=== PATIENT | female | born 1965 | race Caucasian/White ===

== ENCOUNTER → 2016-07-10 | Outpatient (CLI) | payer BC ==
[~2016-07-10] MED LIST: AMOXICILLIN 8751 TAB PO; AZO CRANBERRY1 EACH PO; CIPRO500 M1 PO; DEXAMETHASONE4 MG PO; MACROBID 100 M100 MG PO; NORCO 325 MG-51 TA1 PO; NORCO 325 MG-51 TAB PO
== END ==
LOC: LAB 14:58
DX: N30.00 Acute cystitis without hematuria (principal)

== ENCOUNTER → 2016-07-23 | Outpatient (CLI) | payer BC | LOC: LAB 11:02 | DX: N30.00 Acute cystitis without hematuria (principal) ==

== ENCOUNTER → 2016-07-28 | Outpatient (CLI) | payer BC | LOC: MAMMO 08:27 | DX: Z01.419 Encounter for gynecological examination (general) (routine) without abnormal findings (principal); E66.9 Obesity, unspecified; Z12.31 Encounter for screening mammogram for malignant neoplasm of breast | CPT/HCPCS: G0202 ==

== ENCOUNTER → 2018-01-04 | Outpatient (CLI) | payer BC ==
[2016-06-28 23:33] VITALS: BP 123/72
[2018-01-04 10:33] LABS: ALBUMIN 4.4 g/dL (3.5-5.0); BUN/CREATININE RATIO 11.9 (6.0-26.0); CALCIUM 8.9 mg/dL (8.4-10.2); POTASSIUM 3.9 mmol/L (3.6-5.0); TOTAL BILIRUBIN 0.7 mg/dL (0.2-1.3); TOTAL PROTEIN 9.1 g/dL (6.3-8.2)
[2018-01-04 11:54] LABS: EOS # 0.1 (0.04-0.40); EOS % 1.2 % (1.0-5.0); HEMATOCRIT 39.5 % (37.0-47.0); HEMOGLOBIN 12.5 g/dL (12.5-16.0); LYMPH# 1.3 (1.50-4.00); MEAN CELL VOLUME 89 fl (78-100); MEAN CORPUSCULAR HEMOGLOBIN 28 pg (27-31); MEAN CORPUSCULAR HGB CONC 32 g/dL (33-37); MEAN PLATELET VOLUME 10.7 fl (7.4-10.4); MONO # 0.6 (0.20-0.80); NEU # 3.6 (1.40-6.50); PLATELET COUNT 312 K/mm3 (130-400); RED BLOOD COUNT 4.46 M/mm3 (4.10-5.30); RED CELL DISTRIBUTION WIDTH 15.1 % (11.5-14.5); WHITE BLOOD COUNT 5.7 K/mm3 (4.8-10.8)
== END ==
LOC: RAD 08:42 → LAB 08:42
PROVIDERS: Nurse Practitioner Family
DX: D25.9 Leiomyoma of uterus, unspecified (principal)

== ENCOUNTER → 2018-01-12 | Outpatient (CLI) | payer BC ==
[2016-06-28 23:33] VITALS: BP 123/72
== END ==
LOC: MAMMO 08:27
DX: Z12.31 Encounter for screening mammogram for malignant neoplasm of breast (principal)

== ENCOUNTER → 2018-11-01 | Outpatient (CLI) | payer BC ==
[~2018-11-01] VITALS: Ht 162.6 cm; Wt 92.3 kg
[~2018-11-01] MED LIST changes: +HYZAAR 100-251 EACH PO
[2018-11-01 12:16] VITALS: BP 133/93
== END ==
LOC: AMSURD 11:25
DX: K21.9 Gastro-esophageal reflux disease without esophagitis (principal); Z82.49 Family history of ischemic heart disease and other diseases of the circulatory system

== ENCOUNTER → 2018-12-26 | Outpatient (CLI) | payer BC ==
[2018-11-01 12:16] VITALS: BP 133/93
== END ==
LOC: RAD 14:00
DX: K21.9 Gastro-esophageal reflux disease without esophagitis (principal); I10 Essential (primary) hypertension; R06.09 Other forms of dyspnea

== ENCOUNTER → 2019-01-19 | Outpatient (CLI) | payer BC ==
[2018-11-01 12:16] VITALS: BP 133/93
[~2019-01-19] MED LIST changes: +24 HOUR NASAL16.9 ML NS; +OMEPRAZOLE40 MG PO
[2019-01-19 09:47] LABS: ALBUMIN 3.9 g/dL (3.5-5.0); POTASSIUM 4.1 mmol/L (3.5-5.1)
[2019-01-19 09:48] LABS: CALCIUM 9.6 mg/dL (8.3-10.5)
[2019-01-19 09:50] LABS: TOTAL PROTEIN 8.2 g/dL (6.4-8.3)
[2019-01-19 09:51] LABS: TOTAL BILIRUBIN 0.4 mg/dL (0.2-1.2)
[2019-01-19 09:52] LABS: EOS % 0.7 % (1.0-5.0); HEMATOCRIT 36.5 % (37.0-47.0); HEMOGLOBIN 11.5 g/dL (12.5-16.0); LYMPH# 1.2 (1.50-4.00); MEAN CELL VOLUME 90 fl (78-100); MEAN CORPUSCULAR HEMOGLOBIN 28 pg (27-31); MEAN CORPUSCULAR HGB CONC 32 g/dL (33-37); MEAN PLATELET VOLUME 9.9 fl (7.4-10.4); MONO # 0.6 (0.20-0.80); NEU # 3.8 (1.40-6.50); PLATELET COUNT 304 K/mm3 (130-400); RED BLOOD COUNT 4.06 M/mm3 (4.10-5.30); WHITE BLOOD COUNT 5.7 K/mm3 (4.8-10.8)
== END ==
LOC: LAB 09:11 → MAMMO 09:11
PROVIDERS: Physician Assistant
DX: Z12.31 Encounter for screening mammogram for malignant neoplasm of breast (principal)

== ENCOUNTER 2019-01-20 19:14 | Emergency (ER) | payer BC ==
[~2019-01-20 19:14] MED LIST changes: -24 HOUR NASAL16.9 ML NS; -OMEPRAZOLE40 MG PO
[2019-01-20] MEDS ORDERED: OMEPRAZOLE40 MG PO (19:17)
[2019-01-20] MEDS ORDERED: 24 HOUR NASAL16.9 ML NS (19:18)
[2019-01-20 20:14] LABS: POTASSIUM 3.5 mmol/L (3.5-5.1)
[2019-01-20 20:15] LABS: CALCIUM 9.2 mg/dL (8.3-10.5)
[2019-01-20 20:31] LABS: PARTIAL THROMBOPLASTIN TIME 20.2 SECONDS (21.0-32.0); PROTHROMBIN TIME 9.5 SECONDS (9.0-12.0)
[2019-01-20 21:22] VITALS: BP 86/60
== END 2019-01-20 20:55 | disposition short-term general hospital (02) ==
LOC: ED 19:14
PROVIDERS: Family Medicine
DX: I21.19 ST elevation (STEMI) myocardial infarction involving other coronary artery of inferior wall (principal); I10 Essential (primary) hypertension; Z79.82 Long term (current) use of aspirin
CPT/HCPCS: J1644; J2270; J3101; J7030

== ENCOUNTER 2019-02-02 20:35 | Emergency (ER) | payer BC ==
[~2019-02-02 20:35] MED LIST changes: +24 HOUR NASAL16.9 ML NS; +OMEPRAZOLE40 MG PO
[2019-02-02] MEDS ORDERED: NITROGLYCERIN0.4 M1 SL (20:47)
[2019-02-02] MEDS ORDERED: FUROSEMIDE40 MG PO (20:48)
[2019-02-02] MEDS ORDERED: ATORVASTATIN CA80 MG PO (20:49)
[2019-02-02] MEDS ORDERED: BRILINTA90 MG PO (20:49)
[2019-02-02] MEDS ORDERED: ZIAC 5-6.25 MG1 EACH PO (20:49)
[2019-02-02] MEDS ORDERED: PROAIR HFA0.09 MG/AC IH (20:49)
[2019-02-02] MEDS ORDERED: BENZONATATE100 M2 PO (20:50)
[2019-02-02] MEDS ORDERED: ASPIRIN E.C. 8181 MG PO (20:50)
[2019-02-02 21:23] LABS: URINE APPEARANCE HAZY; URINE BILIRUBIN NEGATIVE (NEGATIVE); URINE COLOR YELLOW; URINE GLUCOSE NEGATIVE (NEGATIVE); URINE KETONE NEGATIVE (NEGATIVE); URINE NITRATE NEGATIVE (NEGATIVE); URINE PROTEIN(semi-quant) TRACE mg/dL (NEGATIVE); URINE UROBILINOGEN NORMAL (NORMAL)
[2019-02-02 21:24] LABS: URINE BLOOD NEGATIVE (NEGATIVE); URINE LEUKOCYTE ESTERASE TRACE (NEGATIVE)
[2019-02-02 22:31] LABS: HEMATOCRIT 34.3 % (37.0-47.0); HEMOGLOBIN 10.7 g/dL (12.5-16.0); MEAN CELL VOLUME 91 fl (78-100); MEAN CORPUSCULAR HEMOGLOBIN 28 pg (27-31); MEAN CORPUSCULAR HGB CONC 31 g/dL (33-37); MEAN PLATELET VOLUME 10.8 fl (7.4-10.4); PLATELET COUNT 315 K/mm3 (130-400); RED BLOOD COUNT 3.79 M/mm3 (4.10-5.30); RED CELL DISTRIBUTION WIDTH 15.3 % (11.5-14.5); WHITE BLOOD COUNT 6.6 K/mm3 (4.8-10.8)
[2019-02-02 22:33] LABS: ALBUMIN 3.5 g/dL (3.5-5.0)
[2019-02-02 22:34] LABS: CALCIUM 8.5 mg/dL (8.3-10.5)
[2019-02-02 22:35] LABS: TOTAL PROTEIN 6.9 g/dL (6.4-8.3)
[2019-02-02 22:37] LABS: TOTAL BILIRUBIN 0.5 mg/dL (0.2-1.2)
[2019-02-02 22:49] LABS: LYMPHOCYTE 11 % (20-51); MONOCYTE 4 % (3-10); NEUTROPHILS 82 % (42-75)
[2019-02-02 23:51] LABS: D-DIMER 8.33 mg/L FEU (0.15-0.50)
[2019-02-03 02:45] VITALS: BP 111/61
== END 2019-02-03 03:00 | disposition short-term general hospital (02) ==
LOC: ED 20:35
PROVIDERS: Nurse Practitioner Family
DX: R50.9 Fever, unspecified (principal); R53.81 Other malaise; I25.10 Atherosclerotic heart disease of native coronary artery without angina pectoris; I25.2 Old myocardial infarction; I10 Essential (primary) hypertension; K21.9 Gastro-esophageal reflux disease without esophagitis; Z95.5 Presence of coronary angioplasty implant and graft; Z88.2 Allergy status to sulfonamides
CPT/HCPCS: J2543; J7030; Q9967

== ENCOUNTER 2019-03-27 08:00 | Outpatient (RCR) | payer BC ==
[~2019-03-27 08:00] MED LIST changes: +ASPIRIN E.C. 8181 MG PO; +ATORVASTATIN CA80 MG PO; +BENZONATATE100 M2 PO; +BRILINTA90 MG PO; +FUROSEMIDE40 MG PO; +NITROGLYCERIN0.4 M1 SL; +PROAIR HFA0.09 MG/AC IH; +ZIAC 5-6.25 MG1 EACH PO
== END 2019-03-27 09:00 | disposition home or self-care (01) ==
LOC: CARDREHAB 08:00
DX: I25.2 Old myocardial infarction (principal)

== ENCOUNTER → 2019-06-14 | Outpatient (CLI) | payer BC ==
[2019-06-14 10:27] LABS: EOS % 0.4 % (1.0-5.0); HEMOGLOBIN 11.2 g/dL (12.5-16.0); LYMPH# 1.5 (1.50-4.00); MEAN CELL VOLUME 91 fl (78-100); MEAN CORPUSCULAR HEMOGLOBIN 28 pg (27-31); MEAN CORPUSCULAR HGB CONC 31 g/dL (33-37); MEAN PLATELET VOLUME 10.4 fl (7.4-10.4); MONO # 0.8 (0.20-0.80); NEU # 4.9 (1.40-6.50); PLATELET COUNT 308 K/mm3 (130-400); RED BLOOD COUNT 3.98 M/mm3 (4.10-5.30); RED CELL DISTRIBUTION WIDTH 17.2 % (11.5-14.5); WHITE BLOOD COUNT 7.3 K/mm3 (4.8-10.8)
[2019-06-14 10:33] LABS: POTASSIUM 4.1 mmol/L (3.5-5.1)
[2019-06-14 10:34] LABS: CALCIUM 9.8 mg/dL (8.3-10.5)
[2019-06-14 10:35] LABS: TOTAL PROTEIN 7.6 g/dL (6.4-8.3)
[2019-06-14 10:37] LABS: TOTAL BILIRUBIN 0.7 mg/dL (0.2-1.2)
== END ==
LOC: LAB 09:58
PROVIDERS: Physician Assistant
DX: I42.9 Cardiomyopathy, unspecified (principal); I10 Essential (primary) hypertension; I30.9 Acute pericarditis, unspecified; L65.9 Nonscarring hair loss, unspecified; R94.5 Abnormal results of liver function studies

== ENCOUNTER 2019-06-26 10:00 | Outpatient (RCR) | payer BC | END 2019-08-08 | disposition still patient (30) | LOC: PT | DX: M25.551 Pain in right hip (principal) ==

== ENCOUNTER → 2020-02-07 | Outpatient (CLI) | payer BC ==
[2020-02-07 11:04] LABS: HEMATOCRIT 35.6 % (37.0-47.0); HEMOGLOBIN 10.9 g/dL (12.5-16.0); MEAN CELL VOLUME 93 fl (78-100); MEAN CORPUSCULAR HEMOGLOBIN 29 pg (27-31); MEAN CORPUSCULAR HGB CONC 31 g/dL (33-37); MEAN PLATELET VOLUME 9.8 fl (7.4-10.4); PLATELET COUNT 256 K/mm3 (130-400); RED BLOOD COUNT 3.81 M/mm3 (4.10-5.30); RED CELL DISTRIBUTION WIDTH 15.1 % (11.5-14.5); WHITE BLOOD COUNT 4.5 K/mm3 (4.8-10.8)
[2020-02-07 11:08] LABS: ALBUMIN 4.1 g/dL (3.5-5.0); POTASSIUM 4.4 mmol/L (3.5-5.1)
[2020-02-07 11:09] LABS: CALCIUM 9.5 mg/dL (8.3-10.5)
[2020-02-07 11:10] LABS: TOTAL PROTEIN 8.6 g/dL (6.4-8.3)
[2020-02-07 11:12] LABS: TOTAL BILIRUBIN 0.5 mg/dL (0.2-1.2)
[2020-02-07 11:32] LABS: LYMPHOCYTE 33 % (20-51); MONOCYTE 12 % (3-10); NEUTROPHILS 54 % (42-75)
[2020-02-08 03:59] LABS: FOLLICLE STIMULATING HORMONE 71.2 mIU/mL (())
== END ==
LOC: LAB 10:42
PROVIDERS: Physician Assistant
DX: I30.9 Acute pericarditis, unspecified (principal); I50.21 Acute systolic (congestive) heart failure; I11.0 Hypertensive heart disease with heart failure; K21.9 Gastro-esophageal reflux disease without esophagitis; G47.33 Obstructive sleep apnea (adult) (pediatric); N91.2 Amenorrhea, unspecified; M70.70 Other bursitis of hip, unspecified hip; Z83.49 Family history of other endocrine, nutritional and metabolic diseases; E78.5 Hyperlipidemia, unspecified; M79.10 Myalgia, unspecified site

== ENCOUNTER → 2020-03-19 | Outpatient (CLI) | payer BC | LOC: MAMMO 09:09 | DX: Z00.00 Encounter for general adult medical examination without abnormal findings (principal); Z12.31 Encounter for screening mammogram for malignant neoplasm of breast ==

== ENCOUNTER → 2020-07-01 | Outpatient (CLI) | payer BC | LOC: RAD 09:34 | DX: M25.551 Pain in right hip (principal) ==

== ENCOUNTER → 2020-11-20 | Outpatient (CLI) | payer BC ==
[~2020-11-20] MED LIST changes: +ALPRAZOLAM0.5 MG PO; +ATORVASTATIN CA10 MG PO; +BISOPROLOL FUMA10 M1 PO; +LOSARTAN POTASS25 MG PO; +VITAMIN D350 MCG PO
[2020-11-20 09:49] LABS: CALCIUM 9.4 mg/dL (8.3-10.5)
[2020-11-20 09:50] LABS: TOTAL PROTEIN 8.2 g/dL (6.4-8.3)
[2020-11-20 09:52] LABS: TOTAL BILIRUBIN 0.5 mg/dL (0.2-1.2)
[2020-11-20 10:11] LABS: BASO # 0.02 (0.02-0.10); EOS # 0.08 (0.04-0.40); EOS % 1.6 % (1.0-5.0); HEMOGLOBIN 11.5 g/dL (12.5-16.0); LYMPH# 1.24 (1.50-4.00); MEAN CELL VOLUME 90 fl (78-100); MEAN CORPUSCULAR HEMOGLOBIN 29 pg (27-31); MEAN CORPUSCULAR HGB CONC 32 g/dL (33-37); MEAN PLATELET VOLUME 10.7 fl (7.4-10.4); MONO # 0.48 (0.20-0.80); NEU # 3.09 (1.40-6.50); PLATELET COUNT 239 K/mm3 (130-400); RED BLOOD COUNT 3.99 M/mm3 (4.10-5.30); RED CELL DISTRIBUTION WIDTH 15.4 % (11.5-14.5); WHITE BLOOD COUNT 4.9 K/mm3 (4.8-10.8)
== END ==
LOC: LAB 09:02
PROVIDERS: Physician Assistant
DX: I10 Essential (primary) hypertension (principal); E78.5 Hyperlipidemia, unspecified; K90.9 Intestinal malabsorption, unspecified; D64.9 Anemia, unspecified

== ENCOUNTER → 2020-12-24 | Outpatient (CLI) | payer BC ==
[2020-12-24 16:26] LABS: BASO # 0.02 (0.02-0.10); EOS # 0.05 (0.04-0.40); EOS % 1.1 % (1.0-5.0); HEMATOCRIT 33.8 % (37.0-47.0); LYMPH# 1.14 (1.50-4.00); MEAN CELL VOLUME 89 fl (78-100); MEAN CORPUSCULAR HEMOGLOBIN 29 pg (27-31); MEAN CORPUSCULAR HGB CONC 33 g/dL (33-37); MEAN PLATELET VOLUME 9.8 fl (7.4-10.4); MONO # 0.38 (0.20-0.80); NEU # 2.79 (1.40-6.50); PLATELET COUNT 248 K/mm3 (130-400); RED BLOOD COUNT 3.78 M/mm3 (4.10-5.30); RED CELL DISTRIBUTION WIDTH 14.7 % (11.5-14.5); WHITE BLOOD COUNT 4.4 K/mm3 (4.8-10.8)
[2020-12-24 16:37] LABS: SODIUM 141 mmol/L (136-145)
[2020-12-24 16:38] LABS: ALBUMIN 3.9 g/dL (3.5-5.0)
[2020-12-24 16:39] LABS: CALCIUM 9.1 mg/dL (8.3-10.5)
[2020-12-24 16:40] LABS: GLUCOSE 92 mg/dL (65-105); TOTAL PROTEIN 8.1 g/dL (6.4-8.3)
[2020-12-24 16:41] LABS: CARBON DIOXIDE 24 mmol/L (22-29)
[2020-12-24 16:42] LABS: TOTAL BILIRUBIN 0.6 mg/dL (0.2-1.2)
[2020-12-24 16:45] LABS: AST-SGOT 18 U/L (5-34)
[2020-12-24 16:47] LABS: ALT/SGPT 17 U/L (0-55)
[2020-12-24 17:03] LABS: TROPONIN-I < 0.03 ng/mL (<0.030)
== END ==
LOC: LAB 16:05
PROVIDERS: Physician Assistant
DX: E55.9 Vitamin D deficiency, unspecified (principal); I10 Essential (primary) hypertension; E78.5 Hyperlipidemia, unspecified; R00.2 Palpitations; R07.9 Chest pain, unspecified

== ENCOUNTER 2021-01-04 21:53 | Emergency (ER) | payer BC ==
[~2021-01-04 21:53] MED LIST changes: -ALPRAZOLAM0.5 MG PO; -ATORVASTATIN CA10 MG PO; -BISOPROLOL FUMA10 M1 PO; -LOSARTAN POTASS25 MG PO; -VITAMIN D350 MCG PO
[2021-01-04] MEDS ORDERED: LOSARTAN POTASS25 MG PO (22:27)
[2021-01-04] MEDS ORDERED: BISOPROLOL FUMA10 M1 PO (22:28)
[2021-01-04] MEDS ORDERED: ATORVASTATIN CA10 MG PO (22:28)
[2021-01-04] MEDS ORDERED: ALPRAZOLAM0.5 MG PO (22:30)
[2021-01-04] MEDS ORDERED: VITAMIN D350 MCG PO (22:30)
[2021-01-04 22:47] LABS: BASO # 0.02 (0.02-0.10); EOS # 0.11 (0.04-0.40); EOS % 1.6 % (1.0-5.0); HEMATOCRIT 33.8 % (37.0-47.0); HEMOGLOBIN 11.1 g/dL (12.5-16.0); LYMPH# 1.79 (1.50-4.00); MEAN CELL VOLUME 89 fl (78-100); MEAN CORPUSCULAR HEMOGLOBIN 29 pg (27-31); MEAN CORPUSCULAR HGB CONC 33 g/dL (33-37); MEAN PLATELET VOLUME 10.6 fl (7.4-10.4); MONO # 0.67 (0.20-0.80); PLATELET COUNT 247 K/mm3 (130-400); RED BLOOD COUNT 3.79 M/mm3 (4.10-5.30); RED CELL DISTRIBUTION WIDTH 14.8 % (11.5-14.5); WHITE BLOOD COUNT 6.8 K/mm3 (4.8-10.8)
[2021-01-04 22:54] LABS: ALBUMIN 3.9 g/dL (3.5-5.0)
[2021-01-04 22:55] LABS: POTASSIUM 3.8 mmol/L (3.5-5.1); SODIUM 141 mmol/L (136-145)
[2021-01-04 22:56] LABS: CALCIUM 9.5 mg/dL (8.3-10.5)
[2021-01-04 22:57] LABS: GLUCOSE 102 mg/dL (65-105); TOTAL PROTEIN 8.2 g/dL (6.4-8.3)
[2021-01-04 22:58] LABS: CARBON DIOXIDE 25 mmol/L (22-29)
[2021-01-04 22:59] LABS: TOTAL BILIRUBIN 0.6 mg/dL (0.2-1.2)
[2021-01-04 23:02] LABS: AST-SGOT 16 U/L (5-34)
[2021-01-04 23:03] LABS: ALT/SGPT 13 U/L (0-55)
[2021-01-04 23:12] LABS: TROPONIN-I < 0.03 ng/mL (<0.030)
[2021-01-05 01:56] VITALS: BP 104/65
== END 2021-01-05 01:56 | disposition home or self-care (01) ==
LOC: ED 21:53
PROVIDERS: Family Medicine
DX: I25.10 Atherosclerotic heart disease of native coronary artery without angina pectoris (principal); Z95.9 Presence of cardiac and vascular implant and graft, unspecified; Z79.82 Long term (current) use of aspirin
CPT/HCPCS: J1885; J2060; J2270

== ENCOUNTER → 2021-04-22 | Outpatient (CLI) | payer BC ==
[~2021-04-22] MED LIST changes: +ALPRAZOLAM0.5 MG PO; +ATORVASTATIN CA10 MG PO; +BISOPROLOL FUMA10 M1 PO; +LOSARTAN POTASS25 MG PO; +VITAMIN D350 MCG PO
== END ==
LOC: LAB 10:47
PROVIDERS: Internal Medicine Cardiovascular Disease
DX: I25.10 Atherosclerotic heart disease of native coronary artery without angina pectoris (principal)

== ENCOUNTER → 2022-01-20 | Outpatient (CLI) | payer BC ==
[2022-01-20 11:07] LABS: BASO # 0.01 K/mm3 (0.02-0.10); EOS # 0.07 K/mm3 (0.04-0.40); EOS % 1.7 % (1.0-5.0); HEMATOCRIT 35.6 % (37.0-47.0); HEMOGLOBIN 11.2 g/dL (12.5-16.0); LYMPH# 1.15 K/mm3 (1.50-4.00); MEAN CELL VOLUME 92 fl (78-100); MEAN CORPUSCULAR HEMOGLOBIN 29 pg (27-31); MEAN CORPUSCULAR HGB CONC 32 g/dL (33-37); MEAN PLATELET VOLUME 10.2 fl (7.4-10.4); MONO # 0.43 K/mm3 (0.20-0.80); NEU # 2.55 K/mm3 (1.40-6.50); PLATELET COUNT 219 K/mm3 (130-400); RED BLOOD COUNT 3.88 M/mm3 (4.10-5.30); RED CELL DISTRIBUTION WIDTH 14.8 % (11.5-14.5); WHITE BLOOD COUNT 4.2 K/mm3 (4.8-10.8)
[2022-01-20 11:25] LABS: POTASSIUM 4.5 mmol/L (3.5-5.1)
[2022-01-20 11:26] LABS: ALBUMIN 4.1 g/dL (3.5-5.0)
[2022-01-20 11:28] LABS: TOTAL PROTEIN 8.7 g/dL (6.4-8.3)
[2022-01-20 11:30] LABS: TOTAL BILIRUBIN 0.7 mg/dL (0.2-1.2)
== END ==
LOC: RAD 10:49
PROVIDERS: Physician Assistant
DX: R10.9 Unspecified abdominal pain (principal)

== ENCOUNTER → 2022-01-20 | Outpatient (CLI) | payer BC ==
[~2022-01-20] MED LIST changes: +ELIQUIS5 MG PO
== END ==
LOC: LAB 10:41
DX: Z00.00 Encounter for general adult medical examination without abnormal findings (principal); Z13.29 Encounter for screening for other suspected endocrine disorder; Z13.220 Encounter for screening for lipoid disorders; Z13.1 Encounter for screening for diabetes mellitus; J30.9 Allergic rhinitis, unspecified; F41.9 Anxiety disorder, unspecified; I10 Essential (primary) hypertension; I42.9 Cardiomyopathy, unspecified; K21.9 Gastro-esophageal reflux disease without esophagitis; R94.5 Abnormal results of liver function studies; E55.9 Vitamin D deficiency, unspecified; K90.9 Intestinal malabsorption, unspecified

== ENCOUNTER 2022-02-27 14:07 | Emergency (ER) | payer BC ==
[~2022-02-27] VITALS: Ht 162.6 cm; Wt 91.0 kg
[~2022-02-27 14:07] MED LIST changes: -ELIQUIS5 MG PO
[2022-02-27 14:49] LABS: BASO # 0.03 K/mm3 (0.02-0.10); EOS # 0.09 K/mm3 (0.04-0.40); EOS % 1.6 % (1.0-5.0); HEMATOCRIT 36.7 % (37.0-47.0); HEMOGLOBIN 11.7 g/dL (12.5-16.0); LYMPH# 1.43 K/mm3 (1.50-4.00); MEAN CELL VOLUME 92 fl (78-100); MEAN CORPUSCULAR HEMOGLOBIN 29 pg (27-31); MEAN CORPUSCULAR HGB CONC 32 g/dL (33-37); MONO # 0.68 K/mm3 (0.20-0.80); NEU # 3.53 K/mm3 (1.40-6.50); PLATELET COUNT 238 K/mm3 (130-400); RED CELL DISTRIBUTION WIDTH 14.5 % (11.5-14.5); WHITE BLOOD COUNT 5.8 K/mm3 (4.8-10.8)
[2022-02-27 15:05] LABS: PARTIAL THROMBOPLASTIN TIME 23.4 SECONDS (21.0-32.0); PROTHROMBIN TIME 10.4 SECONDS (9.0-12.0)
[2022-02-27 15:38] LABS: D-DIMER 0.99 mg/L FEU (0.15-0.50)
[2022-02-27 15:44] LABS: URINE APPEARANCE CLEAR; URINE COLOR YELLOW; URINE PROTEIN(semi-quant) TRACE (NEGATIVE)
[2022-02-27 15:45] LABS: URINE BILIRUBIN NEGATIVE (NEGATIVE); URINE BLOOD TRACE (NEGATIVE); URINE GLUCOSE NEGATIVE (NEGATIVE); URINE KETONE NEGATIVE (NEGATIVE); URINE LEUKOCYTE ESTERASE NEGATIVE (NEGATIVE); URINE MUCUS PRESENT (NOT PRESENT); URINE NITRATE NEGATIVE (NEGATIVE); URINE UROBILINOGEN NORMAL (NORMAL)
[2022-02-27 16:18] LABS: POTASSIUM 3.7 mmol/L (3.5-5.1); SODIUM 139 mmol/L (136-145)
[2022-02-27 16:19] LABS: CALCIUM 9.3 mg/dL (8.3-10.5)
[2022-02-27 16:20] LABS: GLUCOSE 99 mg/dL (65-105); TOTAL PROTEIN 8.3 g/dL (6.4-8.3)
[2022-02-27 16:21] LABS: CARBON DIOXIDE 24 mmol/L (22-29)
[2022-02-27 16:22] LABS: TOTAL BILIRUBIN 0.8 mg/dL (0.2-1.2)
[2022-02-27 16:24] LABS: TROPONIN-I < 0.030 ng/mL (<0.030)
[2022-02-27 16:25] LABS: AST-SGOT 17 U/L (5-34)
[2022-02-27 16:26] LABS: ALT/SGPT 12 U/L (0-55)
[2022-02-27 16:27] LABS: LIPASE 28 U/L (8-78)
[2022-02-27] MEDS ORDERED: ELIQUIS5 MG PO (18:48)
[2022-02-27 18:57] VITALS: BP 114/64
== END 2022-02-27 18:57 | disposition home or self-care (01) ==
LOC: ED 14:07
PROVIDERS: Nurse Practitioner
DX: I26.99 Other pulmonary embolism without acute cor pulmonale (principal); I25.2 Old myocardial infarction; Z28.310 Unvaccinated for COVID-19; Z95.5 Presence of coronary angioplasty implant and graft; Z20.822 Contact with and (suspected) exposure to COVID-19
CPT/HCPCS: Q9967

== ENCOUNTER → 2022-03-18 | Outpatient (CLI) | payer BC ==
[~2022-03-18] MED LIST changes: +ELIQUIS5 MG PO
== END ==
LOC: MAMMO 08:15
DX: Z12.31 Encounter for screening mammogram for malignant neoplasm of breast (principal)

== ENCOUNTER → 2023-06-02 | Outpatient (CLI) | payer BC ==
[2023-06-02 09:39] LABS: BASO # 0.01 K/mm3 (0.02-0.10); EOS # 0.05 K/mm3 (0.04-0.40); EOS % 1.3 % (1.0-5.0); HEMATOCRIT 39.6 % (37.0-47.0); HEMOGLOBIN 12.3 g/dL (12.5-16.0); LYMPH# 0.91 K/mm3 (1.50-4.00); MEAN CELL VOLUME 97 fl (78-100); MEAN CORPUSCULAR HEMOGLOBIN 30 pg (27-31); MEAN CORPUSCULAR HGB CONC 31 g/dL (33-37); MEAN PLATELET VOLUME 9.9 fl (7.4-10.4); MONO # 0.42 K/mm3 (0.20-0.80); NEU # 2.59 K/mm3 (1.40-6.50); PLATELET COUNT 214 K/mm3 (130-400); RED BLOOD COUNT 4.07 M/mm3 (4.10-5.30); RED CELL DISTRIBUTION WIDTH 14.3 % (11.5-14.5)
[2023-06-02 09:47] LABS: ALBUMIN 4.1 g/dL (3.5-5.0)
[2023-06-02 09:48] LABS: CALCIUM 9.4 mg/dL (8.3-10.5)
[2023-06-02 09:52] LABS: TOTAL BILIRUBIN 0.7 mg/dL (0.2-1.2)
== END ==
LOC: LAB 09:26
PROVIDERS: Physician Assistant
DX: Z00.00 Encounter for general adult medical examination without abnormal findings (principal); Z13.1 Encounter for screening for diabetes mellitus; Z13.29 Encounter for screening for other suspected endocrine disorder; I13.0 Hypertensive heart and chronic kidney disease with heart failure and stage 1 through stage 4 chronic kidney disease, or unspecified chronic kidney disease; N18.30 Chronic kidney disease, stage 3 unspecified; I50.9 Heart failure, unspecified; D64.9 Anemia, unspecified; J30.9 Allergic rhinitis, unspecified; F41.9 Anxiety disorder, unspecified; I42.9 Cardiomyopathy, unspecified; K21.9 Gastro-esophageal reflux disease without esophagitis; K90.9 Intestinal malabsorption, unspecified; R94.5 Abnormal results of liver function studies

== ENCOUNTER → 2023-06-02 | Outpatient (CLI) | payer BC | LOC: MAMMO 07:30 | DX: Z12.31 Encounter for screening mammogram for malignant neoplasm of breast (principal) ==

== ENCOUNTER → 2023-12-14 | Outpatient (CLI) | payer BC | LOC: LAB 09:01 | DX: Z13.29 Encounter for screening for other suspected endocrine disorder (principal); R53.83 Other fatigue; K90.9 Intestinal malabsorption, unspecified; D64.9 Anemia, unspecified; Z83.79 Family history of other diseases of the digestive system ==